=== PATIENT | female | born 1940 | race Caucasian/White ===

== ENCOUNTER 2018-06-29 11:34 | Outpatient (CLI) | payer MEDICARE, OTHER ==
--- NOTE | 2018-06-29 13:41 | Ultrasound Report ---
Reason: RIGHT BREAST PAIN Procedure Date: 06/29/2018 Accession Number: [id number] / [id number] Procedure: US - Breast Unilateral Limited CPT Code: FULL RESULT: EXAM: Diagnostic Dig Bilat, Breast Unilateral Limited DATE: 06/29/2018 12:23 PM CLINICAL HISTORY: Right breast pain COMPARISON: 04/15/2017, 02/11/2016, 01/29/2016, 11/24/2014, 11/23/2012 and 07/09/2012 BILATERAL MAMMOGRAPHY TECHNIQUE: Bilateral digital CC, MLO, right true lateral and right spot compression views. FINDINGS: There are scattered fibroglandular densities. There has been no significant interval change. No dominant mass, architectural distortion, skin thickening, clustered suspicious microcalcifications or other finding. RIGHT BREAST ULTRASOUND TECHNIQUE: Real-time scanning by the national account representative with saved static images reviewed. FINDINGS: In the area of pain 10:00 position right breast 5 cm from the nipple there is a prominent dilated duct measuring 6 x 2 x 7 mm. No solid mass is identified. IMPRESSION: Benign findings RECOMMENDATION: Follow-up bilateral mammography in 12 months. Clinical follow-up of breast pain. BIRADS CATEGORY 2: Benign findings STANDARD QUALIFYING STATEMENTS: 1. This examination was reviewed with the aid of Computer-Aided Detection (CAD). 2. A negative or benign imaging report should not delay biopsy if clinically suspicious findings are present. Consider surgical consultation if warrented. More than 5% of cancers are not identified by imaging. 3. Dense breasts may obscure an underlying neoplasm.
== END 2018-06-29 11:35 | disposition home or self-care (01) ==
LOC: DI 11:34
PROVIDERS: ATTEND Internal Medicine
DX: N64.4 Mastodynia (principal); N60.41 Mammary duct ectasia of right breast
CPT/HCPCS: 76642; 77066

== ENCOUNTER 2019-01-24 11:24 | Outpatient (CLI) | payer MEDICARE, MEDICAID ==
--- NOTE | 2019-01-24 14:53 | XRAY Report ---
Reason: DYSPNEA Procedure Date: 01/24/2019 Accession Number: [id number] / [id number] Procedure: XR - Chest 2 View X-Ray CPT Code: 26453 FULL RESULT: EXAM: CHEST RADIOGRAPHY EXAM DATE: 01/24/2019 12:07 PM. CLINICAL HISTORY: Dyspnea. COMPARISON: None. TECHNIQUE: 2 views. FINDINGS: Lungs/Pleura: No focal opacities evident. No pleural effusion. No pneumothorax. Normal volumes. Mediastinum: Heart and mediastinal contours are unremarkable. Other: Lower thoracic levoscoliosis with associated mild kyphosis and multilevel degenerative disk changes. Left glenohumeral joint arthritis. IMPRESSION: No infiltrates or edema. RADIA
== END 2019-01-24 11:25 | disposition home or self-care (01) ==
LOC: LAB 11:24 → DI 11:25
PROVIDERS: ATTEND Internal Medicine
DX: R06.00 Dyspnea, unspecified (principal)
CPT/HCPCS: 36415; 71046; 83880

== ENCOUNTER 2019-02-08 10:57 | Outpatient (CLI) | payer MEDICARE, MEDICAID | END 2019-02-08 10:58 | disposition EMS.NT | LOC: EMS 10:57 | PROVIDERS: ATTEND Surgery | DX: R10.84 Generalized abdominal pain (principal) ==

== ENCOUNTER 2019-02-08 11:57 | Emergency (ER) | payer MEDICARE, MEDICAID ==
[2019-02-08 12:46] LABS: BASOPHILS # (AUTO) 0.1 10^3/uL (0.0-0.1); BASOPHILS % (AUTO) 0.7 %; EOSINOPHILS # (AUTO) 0.1 10^3/uL (0.0-0.7); EOSINOPHILS % (AUTO) 0.9 %; HGB - HEMOGLOBIN 12.7 g/dL (12.0-16.0); LYMPHOCYTES # (AUTO) 1.2 10^3/uL (1.5-3.5); LYMPHOCYTES % (AUTO) 15.7 %; MEAN CORPUSCULAR HEMOGLOBIN 28.4 pg (27.0-31.0); MEAN CORPUSCULAR HGB CONC 33.1 g/dL (32.0-36.0); MEAN CORPUSCULAR VOLUME 85.8 fL (81.0-99.0); MONOCYTES # (AUTO) 0.4 10^3/uL (0.0-1.0); MONOCYTES % (AUTO) 5.8 %; NEUTROPHILS # (AUTO) 5.9 10^3/uL (1.5-6.6); NEUTROPHILS % (AUTO) 76.9 %; PLT - PLATELET COUNT 242 10^3/uL (130-450); RED BLOOD COUNT 4.49 10^6/uL (4.20-5.40); RED CELL DISTRIBUTION WIDTH 14.6 % (12.0-15.0); WHITE BLOOD COUNT 7.7 x10^3/uL (4.8-10.8)
[2019-02-08 12:58] LABS: ALBUMIN/GLOBULIN RATIO 1.4 (1.0-2.2); BILIRUBIN,TOTAL 0.8 mg/dL (0.2-1.0); CALCIUM 9.6 mg/dL (8.5-10.3); CREATININE 0.7 mg/dL (0.4-1.0); TOTAL PROTEIN 6.9 g/dL (6.7-8.2)
--- NOTE | 2019-02-08 13:05 | ED Physician Documentation ---
PD HPI ABD PAIN - Stated complaint Stated Complaint: WEAKNESS - Chief complaint Chief Complaint: Abd Pain - History obtained from History obtained from: Patient - History of Present Illness Timing - onset: How many hours ago (3) Timing - duration: Minutes (5-10) Timing - details: Abrupt onset Pain level max: 10 Pain level now: 0 Quality: Cramping, Pain Location: Other (lower abdominal) Radiation: Other (non-radiating) Improved by: Other (nothing) Worsened by: Other (nothing) Associated symptoms: Nausea, Constipation (has a problem with constipation normally), Near syncope / syncope (felt dizzy with the pain was severe). No: Fever, Vomiting, Hematemesis, Diarrhea Recently seen: Not recently seen - Additional information Additional information: 79-year-old female presents to the emergency department with with lower abdominal cramping today. She states that she went to the bathroom and felt like she needed to have a bowel movement but not much came out. There was no blood. She states she had severe lower abdominal cramping that caused her to feel lightheaded and dizzy. This lasted approximately 5-10 minutes and then resolved. She states that she feels better now. Does have a history of constipation. No vomiting. No recent surgery. No recent antibiotics. No fev ers. No recent travel Review of Systems Constitutional: denies: Fever, Chills Cardiac: denies: Chest pain / pressure Respiratory: denies: Cough GI: denies: Vomiting, Hematemesis, Bloody / black stool Skin: denies: Rash Musculoskeletal: denies: Neck pain, Back pain Neurologic: denies: Headache PD PAST MEDICAL HISTORY - Past Medical History Past Medical History: No - Present Medications Home Medications: Ambulatory Orders Medication Instructions Recorded Confirmed Levothyroxine [Synthroid] 112 mcg PO QDAC 02/08/19 02/08/19 Sertraline [Zoloft] 50 mg PO DAILY 02/08/19 02/08/19 - Allergies Allergies/Adverse Reactions: Allergies Allergy/AdvReac Type Severity Reaction Status Date / Time procaine [From Novocain] Allergy Unknown Verified 02/08/19 13:18 - Social History Does the pt smoke?: No Smoking Status: Never smoker PD ED PE NORMAL - Vitals Vital signs reviewed: Yes - General General: Alert and oriented X 3, No acute distress, Well developed/nourished - HEENT HEENT: Moist mucous membranes, Pharynx benign - Neck Neck: Supple, no meningeal sign - Cardiac Cardiac: RRR, Strong equal pulses - Respiratory Respiratory: No respiratory distress, Clear bilaterally - Abdomen Abdomen: Normal bowel sounds, Soft, Non tender, Non distended - Back Back: No CVA TTP, No spinal TTP - Derm Derm: Warm and dry - Extremities Extremities: No edema - Neuro Neuro: Alert and oriented X 3 - Psych Psych: Normal mood, Normal affect Results - Vitals Vitals: Vital Signs - 24 hr 02/08/19 02/08/19 02/08/19 12:05 14:35 14:37 Temperature 36.2 C L Heart Rate 52 L 63 86 Respiratory 16 18 16 Rate Blood Pressure 165/87 H 124/84 H 124/86 H O2 Saturation 99 98 100 Oxygen O2 Source Room air - EKG (time done) 1218 Rate: Rate (enter#) (52) Rhythm: NSR [place]: Normal Intervals: Normal MA QRS: Normal Ischemia: Normal ST segments - Labs Labs: Laboratory Tests 02/08/19 02/08/19 02/08/19 12:29 12:29 13:04 WBC 7.7 RBC 4.49 Hgb 12.7 Hct 38.5 MCV 85.8 MCH 28.4 MCHC 33.1 RDW 14.6 Plt Count 242 MPV 9.0 Neut # (Auto) 5.9 Lymph # (Auto) 1.2 L [place] # (Auto) 0.4 Eos # (Auto) 0.1 Baso # (Auto) 0.1 Absolute Nucleated RBC 0.00 Nucleated RBC % 0.0 Sodium 138 Potassium 3.8 Chloride 102 Carbon Dioxide 25 Anion Gap 11.0 BUN 19 Creatinine 0.7 Estimated GFR (MDRD) 81 L Glucose 132 H Calcium 9.6 Total Bilirubin 0.8 AST 23 ALT 15 Alkaline Phosphatase 58 Total Protein 6.9 Albumin 4.0 Globulin 2.9 Albumin/Globulin Ratio 1.4 Lipase 34 Urine Color YELLOW Urine Clarity HAZY Urine pH 8.5 H Ur Specific [place] 1.010 Urine Protein NEGATIVE Urine Glucose (UA) NEGATIVE Urine Ketones NEGATIVE Urine Occult Blood NEGATIVE Urine Nitrite NEGATIVE Urine Bilirubin NEGATIVE Urine Urobilinogen 0.2 (NORMAL) Ur Leukocyte Esterase NEGATIVE Urine RBC None Seen Urine WBC 0-3 Ur Squamous Epith Cells NONE SEEN Amorphous Sediment Few Urine Bacteria Rare Urine Casts 0-2 Hyaline Casts Ur Microscopic Review INDICATED Urine Culture Comments NOT INDICATED - Rads (name of study) CT abdomen pelvis Radiology: Prelim report reviewed, EMP read contemporaneously, See rad report ( There is distal colon diverticulosis without CT evidence of diverticulitis. 2. No evidence of bowel obstruction. No significant mesenteric inflammation. 3. There are punctate hyperdensities, architectural distortion, and some soft tissue density at the gastroesophageal junction. This could be secondary to prior fundoplication. Clinical correlation recommended. Differential consideration would be a mass. 4. There is a 2.8 x 1.9 cm hypodensity within segment 7 of the liver. It demonstrates peripheral nodular hyperdensity. There is an adjacent 1.1 cm enhancing mass within the liver. These probably represent hemangiomas. This could be confirmed with nonemergent dedicated hepatic MRI or CT as indicated. ) PD MEDICAL DECISION MAKING - ED course Complexity details: reviewed results, re-evaluated patient, considered different ial, d/w patient, d/w family ED course: Patient had a hiatal hernia repair with reconstruction of her gastroesophageal junction 2 years ago. Symptoms resolved in the emergency department. Tolerating p.o. without difficulty. Eating lunch. No acute findings on laboratory studies. The abnormality at the gastroesophageal junction is likely the findings of her surgery. Abdomen remains soft, nontender nondistended on serial exam. Sounds as if she had bowel cramping. No evidence of aortic dissection or aneurysm. No evidence of mesenteric ischemia. Patient counseled regarding signs and symptoms for which I believe and urgent re-evaluation would be necessary. Patient with good understanding of and agreement to plan and is comfortable going home at this time This document was made in part using voice recognition software. While efforts are made to proofread this document, sound alike and grammatical errors may occur. Departure - Departure Disposition: 01 Home, Self Care Clinical Impression: Abdominal pain Qualifiers: Abdominal location: lower abdomen, unspecified Qualified Code(s): R10.30 - Lower abdominal pain, unspecified Condition: Good Instructions: ED Abdominal Pain Unkn Cause Follow-Up: Angie Mathew MD [Primary Care Provider] - Within 3 Days Comments: The cause of your symptoms is unclear today. Follow-up with your doctor for further care. Return if you worsen. Discharge Date/Time: 02/08/19 14:54
[2019-02-08 13:15] LABS: BILIRUBIN,URINE NEGATIVE (NEGATIVE); GLUCOSE, URINE (UA) NEGATIVE (NEGATIVE); KETONES,URINE (UA) NEGATIVE (NEGATIVE); LEUKOCYTE ESTERASE, URINE NEGATIVE (NEGATIVE); NITRITE,URINE NEGATIVE (NEGATIVE); OCCULT BLOOD,URINE NEGATIVE (NEGATIVE); PH,URINE 8.5 PH (5.0-7.5); PROTEIN,URINE NEGATIVE (NEGATIVE); UROBILINOGEN,URINE 0.2 (NORMAL) E.U./dL (NORMAL)
[2019-02-08 13:18] LABS: CLARITY,URINE HAZY (CLEAR)
[2019-02-08] MEDS ORDERED: IOVERSOL 320 100 ML VIAL IVP ONE ×2 (13:29→14:29)
[2019-02-08 13:33] LABS: AMORPHOUS SEDIMENT,UR Few /LPF; BACTERIA,URINE Rare /HPF (None Seen); RBC,URINE None Seen /HPF (0-5); SQUAMOUS EPITHELIAL CELL,UR NONE SEEN (<= Few)
[2019-02-08 13:34] LABS: CASTS, URINE 0-2 Hyaline Casts /LPF
--- NOTE | 2019-02-08 14:26 | CT Report ---
Reason: Lower abd pain, severe this am Procedure Date: 02/08/2019 Accession Number: [id number] / [id number] Procedure: CT - Abdomen/Pelvis W CPT Code: FULL RESULT: EXAM: CT ABDOMEN AND PELVIS EXAM DATE: 02/08/2019 01:57 PM. CLINICAL HISTORY: Abdominal pain COMPARISONS: CHEST 2 VIEW 01/24/2019 12:04 PM. TECHNIQUE: Routine helical CT imaging was performed through the abdomen and pelvis. IV contrast: CE. Enteric contrast: No. Reconstructions: Coronal and sagittal. In accordance with CT protocol optimization, one or more of the following dose reduction techniques were utilized for this exam: automated exposure control, adjustment of mA and/or KV based on patient size, or use of iterative reconstructive technique. FINDINGS: Lung Bases: No acute abnormalities are seen. Liver: There is a 2.8 x 1.9 cm hypodensity within segment 7 of the liver. There is an adjacent 1.1 cm enhancing focus. There is some punctate calcification at the posterior margin of the liver. Gallbladder/Bile Ducts: The gallbladder is surgically absent. There is no significant bile duct dilatation. Spleen: No significant abnormalities are seen. Pancreas: There is fatty replacement of the pancreas. No acute pancreatic abnormalities. Adrenal Glands: Normal. Kidneys: Normal. No masses or hydronephrosis. Peritoneal Cavity/Bowel: There are punctate densities with some associated hypodensity at the gastroesophageal junction (for example image 16 series 3). No acute small bowel abnormalities are seen. There is distal colon diverticulosis without CT evidence of diverticulitis. There is no intraperitoneal free air or free fluid. There are no enlarged mesenteric or retroperitoneal lymph nodes. No evidence of appendicitis. Pelvic Organs: Calcification at the anterior margin of the uterus may represent a fibroid. The urinary bladder is unremarkable. Vasculature: No acute vascular abnormalities are seen. Bones: No significant abnormality. Other: None. IMPRESSION: 1. There is distal colon diverticulosis without CT evidence of diverticulitis. 2. No evidence of bowel obstruction. No significant mesenteric inflammation. 3. There are punctate hyperdensities, architectural distortion, and some soft tissue density at the gastroesophageal junction. This could be secondary to prior fundoplication. Clinical correlation recommended. Differential consideration would be a mass. 4. There is a 2.8 x 1.9 cm hypodensity within segment 7 of the liver. It demonstrates peripheral nodular hyperdensity. There is an adjacent 1.1 cm enhancing mass within the liver. These probably represent hemangiomas. This could be confirmed with nonemergent dedicated hepatic MRI or CT as indicated. RADIA
[2019-02-08 14:38] VITALS: BP 124/86
== END 2019-02-08 14:54 | disposition home or self-care (01) ==
LOC: ED 11:57
DX: R10.30 Lower abdominal pain, unspecified (principal); R42 Dizziness and giddiness; K57.30 Diverticulosis of large intestine without perforation or abscess without bleeding; R16.0 Hepatomegaly, not elsewhere classified; Z98.890 Other specified postprocedural states
CPT/HCPCS: 36415; 74177; 80053; 81001; 83690; 85025; 93005; 99283; Q9967; 81003; 87086

== ENCOUNTER 2020-04-10 12:54 | Outpatient (CLI) | payer MEDICARE, MEDICAID ==
--- NOTE | 2020-04-10 14:01 | XRAY Report ---
PROCEDURE: Knee 3 View RT INDICATIONS: RT KNEE PAIN TECHNIQUE: 3 views of the right knee(s) were acquired. COMPARISON: None. FINDINGS: Bones: Lucency noted in the medial tibial plateau concerning for nondisplaced/depressed fracture. Sev ere osteoarthritic degenerative changes noted in the patellofemoral compartment. Mild to moderate lat eral and medial compartment osteoarthritis. Soft tissues: No joint effusion. No suspicious soft tissue calcifications. IMPRESSION: Possible nondisplaced, nondepressed medial tibial plateau fracture. Recommend CT scan of the knee for definitive characterization. Findings and recommendations telephoned Angie Mathew on 04/10/2020 at 1359 hours. Reviewed by: Brittney Mendez MD, PhD on 04/10/2020 1:59 PM PDT Approved by: Brittney Mendez MD, PhD on 04/10/2020 1:59 PM PDT Station ID: [id number]
--- NOTE | 2020-04-10 17:26 | CT Report ---
PROCEDURE: LOWER EXTREMITY WO - RT INDICATIONS: R KNEE PAIN TECHNIQUE: Noncontrast 3 mm axial sections acquired of the right knee, with coronal and sagittal reformats. COMPARISON: Correlation is made with right knee plain films 04/10/2020. FINDINGS: Image quality: Excellent. Bones: There is a mildly displaced, comminuted fracture seen involving the medial tibial plateau, wh ich is best seen on coronal images, as on series 6 image 61. There is intra-articular involvement see n. No additional fractures are seen. No dislocations are seen. Age-appropriate osteopenia and degenerati ve changes are seen. Soft tissues: There is a mild associated joint effusion seen. IMPRESSION: Mildly displaced, comminuted, intra-articular medial tibial plateau fracture. An orthopedic surgery consultation is recommended. Reviewed by: Steven Moreira MD on 04/10/2020 4:25 PM JUNE Approved by: Steven Moreira MD on 04/10/2020 4:25 PM JUNE Station ID: [id number]
== END 2020-04-10 12:55 | disposition home or self-care (01) ==
LOC: DI 12:54
PROVIDERS: ATTEND Internal Medicine
DX: S82.141A Displaced bicondylar fracture of right tibia, initial encounter for closed fracture (principal)

== ENCOUNTER 2021-02-18 13:12 | Outpatient (CLI) | payer MEDICARE, MEDICAID ==
[2021-02-18 20:00] LABS: BASOPHILS % (AUTO) 0.6 %; EOSINOPHILS # (AUTO) 0.1 10^3/uL (0.0-0.7); EOSINOPHILS % (AUTO) 1.5 %; HCT - HEMATOCRIT 36.7 % (37.0-47.0); HGB - HEMOGLOBIN 11.6 g/dL (12.0-16.0); LYMPHOCYTES # (AUTO) 2.4 10^3/uL (1.5-3.5); LYMPHOCYTES % (AUTO) 36.4 %; MEAN CORPUSCULAR HEMOGLOBIN 28.2 pg (27.0-31.0); MEAN CORPUSCULAR HGB CONC 31.6 g/dL (32.0-36.0); MEAN CORPUSCULAR VOLUME 89.1 fL (81.0-99.0); MEAN PLATELET VOLUME 11.6 fL (7.9-10.8); MONOCYTES # (AUTO) 0.4 10^3/uL (0.0-1.0); MONOCYTES % (AUTO) 6.6 %; NEUTROPHILS # (AUTO) 3.6 10^3/uL (1.5-6.6); NEUTROPHILS % (AUTO) 54.6 %; PLT - PLATELET COUNT 297 10^3/uL (130-450); RED BLOOD COUNT 4.12 10^6/uL (4.20-5.40); RED CELL DISTRIBUTION WIDTH 14.4 % (12.0-15.0); WHITE BLOOD COUNT 6.6 x10^3/uL (4.8-10.8)
[2021-02-18 20:16] LABS: ALBUMIN 4.2 g/dL (3.2-5.5); ALBUMIN/GLOBULIN RATIO 1.4 (1.0-2.2); ALKALINE PHOSPHATASE 52 IU/L (42-121); ALT ALANINE AMINOTRANSFERASE 13 IU/L (10-60); AST ASPARTATE AMINOTRANSFERASE 19 IU/L (10-42); BILIRUBIN,TOTAL 0.7 mg/dL (0.2-1.0); BUN - BLOOD UREA NITROGEN 18 mg/dL (6-20); CALCIUM 9.3 mg/dL (8.5-10.3); CARBON DIOXIDE - CO2 26 mmol/L (21-32); CHLORIDE 106 mmol/L (101-111); CHOL/HDL RATIO 3.5 (<4.4); CHOLESTEROL 287 mg/dL; CREATININE 0.6 mg/dL (0.4-1.0); GFR - MDRD 96 (>89); GLUCOSE 84 mg/dL (70-100); HDL CHOLESTEROL 83 mg/dL; LDL CHOLESTEROL,CALCULATED 189 mg/dL; LDL/HDL RATIO 2.3 (<4.4); POTASSIUM 4.2 mmol/L (3.5-5.0); SODIUM 140 mmol/L (135-145); TOTAL PROTEIN 7.1 g/dL (6.7-8.2); TRIGLYCERIDES 75 mg/dL; VLDL CHOLESTEROL 15 mg/dL
== END 2021-02-18 13:13 | disposition home or self-care (01) ==
LOC: LAB.S 13:12
PROVIDERS: ATTEND Internal Medicine
DX: M25.50 Pain in unspecified joint (principal); Z13.6 Encounter for screening for cardiovascular disorders; M19.90 Unspecified osteoarthritis, unspecified site; R25.2 Cramp and spasm; E78.5 Hyperlipidemia, unspecified; F41.9 Anxiety disorder, unspecified; E03.9 Hypothyroidism, unspecified
CPT/HCPCS: 36415; 80053; 80061; 83721; 84443; 85025

== ENCOUNTER 2021-03-11 07:15 | Outpatient (CLI) | payer MEDICARE, MEDICAID ==
--- NOTE | 2021-03-11 16:02 | XRAY Report ---
PROCEDURE: Shoulder 3 View LT INDICATIONS: LEFT SHOULDER PAIN TECHNIQUE: 3 views of the shoulder were acquired. COMPARISON: None. FINDINGS: Bones: No fractures or dislocations. No suspicious bony lesions. Visualized ribs appear intact. M oderate to severe acromioclavicular and glenohumeral degenerative narrowing. Subchondral sclerosis is present with periarticular osteophytes. Soft tissues: No suspicious soft tissue calcifications. IMPRESSION: Prominent degenerative changes at the glenohumeral and acromioclavicular joint spaces. Reviewed by: Rekha Doran MD on 03/11/2021 4:01 PM PDT Approved by: Rekha Doran MD on 03/11/2021 4:01 PM PDT Station ID: [id number]
== END 2021-03-11 23:59 | disposition home or self-care (01) ==
LOC: DI.N 07:15
PROVIDERS: ATTEND Physician Assistant
DX: M19.012 Primary osteoarthritis, left shoulder (principal)

== ENCOUNTER 2021-12-21 08:00 | Outpatient (CLI) | payer MEDICARE, MEDICAID | END 2021-12-21 23:59 | disposition home or self-care (01) | LOC: LAB.R 08:00 | PROVIDERS: ATTEND Internal Medicine | DX: E03.9 Hypothyroidism, unspecified (principal) | CPT/HCPCS: 84443 ==

== ENCOUNTER 2022-03-22 13:06 | Outpatient (CLI) | payer MEDICARE, MEDICAID | END 2022-03-22 13:07 | disposition home or self-care (01) | LOC: LAB.S 13:06 | PROVIDERS: ATTEND Internal Medicine | DX: E03.9 Hypothyroidism, unspecified (principal) | CPT/HCPCS: 36415; 84443 ==

== ENCOUNTER 2022-05-01 14:45 | Emergency (ER) | payer MEDICARE, MEDICAID ==
--- NOTE | 2022-05-01 15:17 | ED Physician Documentation ---
PD HPI FOCAL NEURO - Stated complaint Stated Complaint: CONFUSSED,LT HAND NUMBNESS - Chief complaint Chief Complaint: Neuro - History obtained from History obtained from: Patient, Family - History of Present Illness Timing - onset: Today - Additional information Additional information: 82-year-old woman with history of hypertension, hypothyroidism. She is brought in by her son for an episode. They states she has episodes like this once a month although this 1 is worse than usual. She got dizzy and weak and complained of left arm tingling and then had difficulty identifying objects such as a cell phone. It was followed by headache and preceded by spots in her vision, both eyes. She also has other complaints including chronic shortness of breath. Her symptoms are gone now but consent continues to have a headache. Her son checked her blood pressure and blood sugar. Her blood pressure was high so he gave her divided doses of captopril, and her blood sugar was in the 120s. Patient feels again back to normal now with the exception of a moderate headache. She does not have a history of migraines. Symptoms started a bit after noon and lasted 30-45 minutes. Review of Systems Ten Systems: 10 systems reviewed and negative Constitutional: denies: Fever, Chills Cardiac: denies: Chest pain / pressure, Palpitations Respiratory: reports: Dyspnea (chronic). denies: Cough Musculoskeletal: reports: Extremity pain (Leg cramps have been going on for years) PD PAST MEDICAL HISTORY - Present Medications Home Medications: Ambulatory Orders Medication Instructions Recorded Confirmed Levothyroxine [Synthroid] 112 mcg PO QDAC 02/08/19 02/08/19 Sertraline [Zoloft] 50 mg PO DAILY 02/08/19 02/08/19 - Allergies Allergies/Adverse Reactions: Allergies Allergy/AdvReac Type Severity Reaction Status Date / Time procaine [From Novocain] Allergy Unknown Verified 05/01/22 15:06 - Social History Does the pt smoke?: No Smoking Status: Never smoker PD ED PE NORMAL - Vitals Vital signs reviewed: Yes - General General: Alert and oriented X 3, No acute distress - HEENT HEENT: PERRL, EOMI - Neck Neck: Supple, no meningeal sign, No bony TTP - Cardiac Cardiac: RRR, No murmur - Respiratory Respiratory: No respiratory distress, Clear bilaterally - Abdomen Abdomen: Normal bowel sounds, Soft, Non tender - Back Back: No CVA TTP, No spinal TTP - Derm Derm: Normal color, Warm and dry - Extremities Extremities: Other (Trigger finger of the right fourth finger and changes in the hands consistent with rheumatism) - Neuro Neuro: Alert and oriented X 3, No motor deficit, No sensory deficit NIHSS - Time Time: 15:10 - Level of Consciousness Level of consciousness: (0) Alert, Keenly responsive LOC Questions: (0) Answers both Q's correct LOC Commands: (0) Performs both correctly - Gaze Best Gaze: (0) Normal - Visual Visual: (0) No loss - Facial Palsy Facial Palsy: (0) Normal, symmetrical movement - Motor Arms (both separate) Motor Arm (right): (0) No drift Motor Arm (left): (0) No drift - Motor Legs (both separate) Motor Leg (right): (0) No drift Motor Leg (left): (0) No drift - Limb Ataxia Limb Ataxia: (0) Absent - Sensory Sensory: (0) Normal - Best Language Best Language: (0) No aphasia - Dysarthria Dysarthria: (0) Normal - Extinction and Inattention (formally neg Extinction and inattention: (0) No abnormality - Total Score/Results Total Score/Result: 0 Results - Vitals Vitals: Vital Signs - 24 hr 05/01/22 15:01 Temperature 36.3 C L Heart Rate 50 L Respiratory 16 Rate Blood Pressure 179/75 H O2 Saturation 100 Oxygen O2 Source Room air - EKG (time done) 1512 Rate: Rate (enter#) (56) Rhythm: NSR [place]: Normal Intervals: Normal [place] QRS: Normal Ischemia: Normal ST segments - Labs Labs: Laboratory Tests 05/01/22 05/01/22 15:20 15:20 WBC 7.6 RBC 4.29 Hgb 12.3 Hct 37.1 MCV 86.5 MCH 28.7 MCHC 33.2 RDW 14.3 Plt Count 284 MPV 10.8 Neut # (Auto) 4.7 Lymph # (Auto) 2.2 [place] # (Auto) 0.6 Eos # (Auto) 0.1 Baso # (Auto) 0.0 Absolute Nucleated RBC 0.00 Nucleated RBC % 0.0 Sodium 136 Potassium 3.9 Chloride 102 Carbon Dioxide 26 Anion Gap 8.0 BUN 20 Creatinine 0.8 Estimated GFR (MDRD) 69 L Glucose 137 H Calcium 10.0 Magnesium 2.0 Total Bilirubin 0.6 AST 22 ALT 12 Alkaline Phosphatase 62 Total Protein 7.0 Albumin 4.0 Globulin 3.0 Albumin/Globulin Ratio 1.3 PD MEDICAL DECISION MAKING - ED course ED course: 82-year-old woman who has had 2 TIAs in the past but is currently noncompliant with recommended aspirin therapy had another TIA today. She has clean carotids and only age-related changes on head CT. Her symptoms are completely gone here with an NIH stroke scale of 0. She also has chronic dyspnea and a chest x-ray was done and negative. Labs are unremarkable. Recommended she restart aspirin therapy and follow-up with her primary care physician. ABCD 2 score is 3 suggestive that she is safe for discharge. Departure - Departure Disposition: 01 Home, Self Care Clinical Impression: TIA (transient ischemic attack) Condition: Good Record reviewed to determine appropriate education?: Yes Instructions: ED Transient Ischemic Attack Comments: You were seen today for symptoms most consistent with a TIA. Thankfully her symptoms have all resolved. There is no evidence of a blockage in her carotid arteries, and your EKG and chest x-ray are unremarkable. Return for new or worsening symptoms. Follow-up with Dr. Mathew, next available appointment calling tomorrow for an appointment. As discussed, given your history you do need to take a baby aspirin a day, we gave you a first dose here. This should continue unless there is some reason to stop.
[2022-05-01 15:25] LABS: BASOPHILS % (AUTO) 0.5 %; EOSINOPHILS # (AUTO) 0.1 10^3/uL (0.0-0.7); EOSINOPHILS % (AUTO) 1.1 %; HCT - HEMATOCRIT 37.1 % (37.0-47.0); HGB - HEMOGLOBIN 12.3 g/dL (12.0-16.0); LYMPHOCYTES # (AUTO) 2.2 10^3/uL (1.5-3.5); LYMPHOCYTES % (AUTO) 29.1 %; MEAN CORPUSCULAR HEMOGLOBIN 28.7 pg (27.0-31.0); MEAN CORPUSCULAR HGB CONC 33.2 g/dL (32.0-36.0); MEAN CORPUSCULAR VOLUME 86.5 fL (81.0-99.0); MEAN PLATELET VOLUME 10.8 fL (7.9-10.8); MONOCYTES # (AUTO) 0.6 10^3/uL (0.0-1.0); MONOCYTES % (AUTO) 7.3 %; NEUTROPHILS # (AUTO) 4.7 10^3/uL (1.5-6.6); NEUTROPHILS % (AUTO) 61.9 %; PLT - PLATELET COUNT 284 10^3/uL (130-450); RED BLOOD COUNT 4.29 10^6/uL (4.20-5.40); RED CELL DISTRIBUTION WIDTH 14.3 % (12.0-15.0); WHITE BLOOD COUNT 7.6 x10^3/uL (4.8-10.8)
[2022-05-01 15:38] LABS: ALBUMIN/GLOBULIN RATIO 1.3 (1.0-2.2); BILIRUBIN,TOTAL 0.6 mg/dL (0.2-1.0); CREATININE 0.8 mg/dL (0.4-1.0); POTASSIUM 3.9 mmol/L (3.5-5.0)
--- NOTE | 2022-05-01 16:09 | CT Report ---
PROCEDURE: HEAD WO INDICATIONS: tia sx TECHNIQUE: Noncontrast 4.5 mm thick angled axial sections acquired from the foramen magnum to the vertex. For r adiation dose reduction, the following was used: automated exposure control, adjustment of mA and/or kV according to patient size. COMPARISON: None. FINDINGS: Image quality: Excellent. CSF spaces: Basal cisterns are patent. No extra-axial fluid collections. Ventricles are normal in size and shape. Brain: No midline shift. No intracranial masses or hemorrhage. Matos-white matter interface is norm al. Subcortical and periventricular hypodensities are consistent with microvascular ischemic disease and age-related cerebral volume loss. Skull and face: Calvarium and visualized facial bones are intact, without suspicious lesions. Sinuses: Visualized sinuses and mastoids are clear. IMPRESSION: 1. No acute intracranial abnormality. 2. Microvascular ischemic disease and age-related cerebral volume loss. Reviewed by: Austen العراقي on 05/01/2022 3:08 PM JUNE Approved by: Austen العراقي on 05/01/2022 3:08 PM JUNE Station ID: [id number]
--- NOTE | 2022-05-01 16:10 | XRAY Report ---
PROCEDURE: Chest 1 View X-Ray INDICATIONS: dyspnea COMMENTS: c/o headache, neck and left shoulder pain; poss TIA. PRIORS: 2V C XR 01/24/19 TECHNIQUE: One view of the chest was acquired. COMPARISON: None FINDINGS: Surgical changes and devices: None. Lungs and pleura: No pleural effusions or pneumothorax. Lungs are clear. Mediastinum: Mediastinal contours appear normal. Heart size is normal. The aorta is tortuous. Bones and chest wall: No suspicious bony lesions. Overlying soft tissues appear unremarkable. Both shoulders have degenerative changes. IMPRESSION: No acute cardiopulmonary abnormality Reviewed by: Austen العراقي on 05/01/2022 3:09 PM JUNE Approved by: Austen العراقي on 05/01/2022 3:09 PM JUNE Station ID: [id number]
[2022-05-01] MEDS ORDERED: ASPIRIN CHEW 81 MG TABLET PO STA (16:36)
[2022-05-01 16:51] VITALS: BP 161/78
--- NOTE | 2022-05-01 17:44 | Ultrasound Report ---
PROCEDURE: Carotid Doppler Complete INDICATIONS: tia sx TECHNIQUE: Color and pulse Doppler interrogation was performed of both carotid systems, with image documentation and velocity measurements. COMPARISON: None. FINDINGS: Right side: Brachial blood pressure: 141/125 mm Hg. Common carotid artery peak systolic velocity: 46.1 cm/sec. Internal carotid artery peak systolic velocity: 86.5 cm/sec. Internal carotid artery end diastolic velocity: 25.7 cm/sec. External carotid artery peak systolic velocity: 34.6 cm/sec. ICA/CCA peak systolic ratio: 1.9 . Matos scale imaging description: Diffuse minimal plaque in the bulb. Percent internal carotid artery stenosis: Less than 50% . Vertebral artery: Flow direction is antegrade. Left side: Brachial blood pressure: 163/85 mm Hg. Common carotid artery peak systolic velocity: 55.2 cm/sec. Internal carotid artery peak systolic velocity: 82.8 cm/sec. Internal carotid artery end diastolic velocity: 19.4 cm/sec. External carotid artery peak systolic velocity: 44.8 cm/sec. ICA/CCA peak systolic ratio: 1.5 . Matos scale imaging description: Diffuse minimal plaque in the bulb Percent internal carotid artery stenosis: Less than 50% . Vertebral artery: Flow direction is antegrade. IMPRESSION: Scattered minimal plaque in the bulbs bilaterally with no significant stenosis. The estimate of stenosis included in the report of the imaging study was calculated using the NASCET method Reviewed by: Austen العراقي on 05/01/2022 4:42 PM JUNE Approved by: Austen العراقي on 05/01/2022 4:42 PM JUNE Station ID: [id number]
== END 2022-05-01 16:51 | disposition home or self-care (01) ==
LOC: ED 14:45
DX: G45.9 Transient cerebral ischemic attack, unspecified (principal)
CPT/HCPCS: 36415; 70450; 71045; 80053; 83735; 85025; 93005; 93880; 99284; A9270

== ENCOUNTER 2022-05-19 10:50 | Outpatient (CLI) | payer MEDICARE, MEDICAID ==
[2022-05-19 15:10] LABS: BASOPHILS # (AUTO) 0.1 10^3/uL (0.0-0.1); BASOPHILS % (AUTO) 0.8 %; EOSINOPHILS # (AUTO) 0.1 10^3/uL (0.0-0.7); EOSINOPHILS % (AUTO) 1.8 %; HCT - HEMATOCRIT 36.3 % (37.0-47.0); HGB - HEMOGLOBIN 11.8 g/dL (12.0-16.0); LYMPHOCYTES % (AUTO) 33.4 %; MEAN CORPUSCULAR HEMOGLOBIN 28.4 pg (27.0-31.0); MEAN CORPUSCULAR HGB CONC 32.5 g/dL (32.0-36.0); MEAN CORPUSCULAR VOLUME 87.3 fL (81.0-99.0); MEAN PLATELET VOLUME 11.8 fL (7.9-10.8); MONOCYTES # (AUTO) 0.4 10^3/uL (0.0-1.0); MONOCYTES % (AUTO) 6.6 %; NEUTROPHILS # (AUTO) 3.5 10^3/uL (1.5-6.6); NEUTROPHILS % (AUTO) 57.1 %; PLT - PLATELET COUNT 277 10^3/uL (130-450); RED BLOOD COUNT 4.16 10^6/uL (4.20-5.40); RED CELL DISTRIBUTION WIDTH 14.5 % (12.0-15.0); WHITE BLOOD COUNT 6.1 x10^3/uL (4.8-10.8)
[2022-05-19 15:14] LABS: % IRON SATURATION 12 % (20-50); ALBUMIN/GLOBULIN RATIO 1.4 (1.0-2.2); ALKALINE PHOSPHATASE 54 IU/L (42-121); ALT ALANINE AMINOTRANSFERASE 11 IU/L (10-60); AST ASPARTATE AMINOTRANSFERASE 19 IU/L (10-42); BILIRUBIN,TOTAL 0.6 mg/dL (0.2-1.0); BUN - BLOOD UREA NITROGEN 18 mg/dL (6-20); CALCIUM 9.2 mg/dL (8.5-10.3); CARBON DIOXIDE - CO2 27 mmol/L (21-32); CHLORIDE 102 mmol/L (101-111); CHOL/HDL RATIO 3.5 (<4.4); CHOLESTEROL 302 mg/dL; CREATININE 0.8 mg/dL (0.4-1.0); GFR - MDRD 69 (>89); GLUCOSE 93 mg/dL (70-100); HDL CHOLESTEROL 86 mg/dL; IRON 45 ug/dL (28-170); LDL CHOLESTEROL,CALCULATED 201 mg/dL; LDL/HDL RATIO 2.3 (<4.4); POTASSIUM 4.4 mmol/L (3.5-5.0); SODIUM 134 mmol/L (135-145); TOTAL IRON BINDING CAPACITY 371 ug/dL (250-450); TOTAL PROTEIN 6.8 g/dL (6.7-8.2); TRANSFERRIN 265 mg/dL (192-382); TRIGLYCERIDES 74 mg/dL; VLDL CHOLESTEROL 15 mg/dL
[2022-05-19 15:32] LABS: THYROID STIMULATING HORMONE 3.18 uIU/mL (0.34-5.60)
[2022-05-19 15:39] LABS: FERRITIN 22.1 ng/mL (11.0-306.8)
[2022-05-19 15:43] LABS: FOLATE 9.59 ng/mL (5.90 - >24.8)
== END 2022-05-19 10:51 | disposition home or self-care (01) ==
LOC: LAB.S 10:50
PROVIDERS: ATTEND Internal Medicine
DX: Z00.00 Encounter for general adult medical examination without abnormal findings (principal); D64.9 Anemia, unspecified; F41.9 Anxiety disorder, unspecified; F32.A Depression, unspecified; H91.90 Unspecified hearing loss, unspecified ear; E78.5 Hyperlipidemia, unspecified; I10 Essential (primary) hypertension; E03.9 Hypothyroidism, unspecified; R41.3 Other amnesia; M19.90 Unspecified osteoarthritis, unspecified site; G45.9 Transient cerebral ischemic attack, unspecified
CPT/HCPCS: 36415; 80053; 80061; 82607; 82728; 82746; 83540; 83721; 84443; 84466; 85025

== ENCOUNTER 2024-06-10 22:06 | Outpatient (CLI) | payer MEDICARE, MEDICAID | END 2024-06-10 22:07 | disposition short-term general hospital (02) | LOC: EMS 22:06 | DX: M25.551 Pain in right hip (principal); W18.39XA Other fall on same level, initial encounter; Y92.009 Unspecified place in unspecified non-institutional (private) residence as the place of occurrence of the external cause; R42 Dizziness and giddiness | CPT/HCPCS: A0425; A0427 ==

== ENCOUNTER 2024-06-25 08:00 | Outpatient (CLI) | payer MEDICAID, MEDICARE ==
[2024-06-25 17:37] LABS: BASOPHILS # (AUTO) 0.1 10^3/uL (0.0-0.1); BASOPHILS % (AUTO) 0.5 %; EOSINOPHILS # (AUTO) 0.1 10^3/uL (0.0-0.7); EOSINOPHILS % (AUTO) 0.5 %; HCT - HEMATOCRIT 29.1 % (37.0-47.0); HGB - HEMOGLOBIN 9.3 g/dL (12.0-16.0); LYMPHOCYTES # (AUTO) 1.4 10^3/uL (1.5-3.5); MEAN CORPUSCULAR VOLUME 93.9 fL (81.0-99.0); MEAN PLATELET VOLUME 9.9 fL (7.9-10.8); MONOCYTES # (AUTO) 0.7 10^3/uL (0.0-1.0); MONOCYTES % (AUTO) 7.3 %; NEUTROPHILS # (AUTO) 7.8 10^3/uL (1.5-6.6); NEUTROPHILS % (AUTO) 77.1 %; PLT - PLATELET COUNT 699 10^3/uL (130-450); RED CELL DISTRIBUTION WIDTH 16.9 % (12.0-15.0); WHITE BLOOD COUNT 10.1 x10^3/uL (4.8-10.8)
[2024-06-25 17:48] LABS: CALCIUM 9.9 mg/dL (8.5-10.3); CREATININE 0.8 mg/dL (0.6-1.3); POTASSIUM 3.6 mmol/L (3.5-4.5)
== END 2024-06-25 23:59 | disposition home or self-care (01) ==
LOC: LAB.R 08:00
PROVIDERS: ATTEND Family Medicine
DX: E78.5 Hyperlipidemia, unspecified (principal); D62 Acute posthemorrhagic anemia
CPT/HCPCS: 80048; 84443; 85025

== ENCOUNTER 2025-09-02 12:24 | Observation (INO) ==
[2025-09-02 13:20] LABS: HCT - HEMATOCRIT 39.9 % (37.0-47.0); HGB - HEMOGLOBIN 13.3 g/dL (12.0-16.0); MEAN PLATELET VOLUME 9.8 fL (7.9-10.8); NRBC ABSOLUTE COUNT (AUTO) 0.00 x10^3/uL; NUCLEATED RED BLOOD CELLS AUTO 0.0 /100WBC; PLT - PLATELET COUNT 390 10^3/uL (130-450); RED CELL DISTRIBUTION WIDTH 14.2 % (12.0-15.0)
--- OUTSIDE RECORDS SUMMARY | 2025-09-02 13:24 | EXTERNAL MEDICAL SUMMARY RPT | Continuity of Care Document ---
Author Organization [facility] Address [address] [place] [id number] Phone Problems date description facility 2025-06-20 14:58 Pain in unspecified ankle and joints of unspecified foot [facility] 2025-06-20 15:51 Pain in unspecified ankle and joints of unspecified foot [facility] 2025-06-21 00:02 Pain in unspecified ankle and joints of unspecified foot [facility] 2025-06-24 13:29 Pain in left ankle and joints o f left foot [facility] 2025-08-22 00:01 Encounter for genera l adult medical examination without abnormal findings [facility] 2025-09-02 13:06 Encounter for genera l adult medical examination without abnormal findings [facility] Social History date description facility
[2025-09-02 13:37] LABS: ALT ALANINE AMINOTRANSFERASE 8.0 IU/L (10-60); AST ASPARTATE AMINOTRANSFERASE 15.0 IU/L (10-42); BUN - BLOOD UREA NITROGEN 14.0 mg/dL (6-20); CARBON DIOXIDE - CO2 25.0 mmol/L (21-32); CREATININE 0.7 mg/dL (0.6-1.3); GFR - MDRD 80.0 (>89)
--- NOTE | 2025-09-02 13:37 | XRAY Report ---
PROCEDURE: XR Chest 1V INDICATIONS: Chest pain TECHNIQUE: One view of the chest was acquired. COMPARISON: 08/01/2024 FINDINGS: Surgical changes and devices: None. Lungs and pleura: No pleural effusions or pneumothorax. No consolidation. Mediastinum: Torturous thoracic aorta. Heart size is enlarged. Bones and chest wall: No suspicious bony lesions. Overlying soft tissues appear unremarkable. IMPRESSION: No acute cardiopulmonary process. Reviewed by: Edward Decker MD on 09/02/2025 1:34 PM PST Approved by: Edward Decker MD on 09/02/2025 1:34 PM PST Station ID: [id number]
[2025-09-02 13:43] LABS: TROPONIN I HIGH SENSITIVITY 7.2 ng/L (2.3-14.8)
--- NOTE | 2025-09-02 16:36 | ED Physician Documentation ---
PD HPI ALTERED MENTAL STATUS Stated complaint Stated Complaint: LOW BP/WEAKNESS Chief complaint Chief Complaint: General Additional information Additional information: 85-year-old female with a history of GERD, depression, hypothyroidism, and hypercholesterolemia presents to the emergency department accompanied by her son, who is her caregiver. Her son reports that the patient was diagnosed with COVID-19 on August 26 and completed a five-day course of Paxlovid, with full resolution of her respiratory symptoms. Since recovery, she has experienced persistent weakness, fatigue, malaise, and intermittent headaches. Her son states that his father, who has dementia, mentioned that the patient may have fallen yesterday. The patient acknowledges a possible fall but is uncertain about the details. She is Afghan-speaking but also converses in Armenian. Her son notes that she alternates between periods of alertness and profound weakness. He has also observed episodes of low blood pressure at home. On evaluation, the patient is alert but confused. When asked the current year, she repeatedly responds 1945 despite being reoriented multiple times. She denies nausea, fever, chills, chest pain, or shortness of breath. [place]way Coma Scale Assess Eye opening: Spontaneous Verbal response: Confused Motor response: Obeys Commands Total score: 14 Meds/Allgy Home Medications Ambulatory Orders Medication Instructions Recorded Confirmed omeprazole 20 mg capsule,delayed 20 mg PO TID 09/18/24 06/20/25 release sertraline 50 mg tablet 50 mg PO QDAY #90 tabs 05/2806/20/25 benazepril 5 mg tablet See Rx Instructions .Route 0 07/15/25 .COMPLEX #90 tabs levothyroxine 88 mcg tablet 88 mcg PO QDAY #30 tabs atorvastatin 20 mg tablet (Lipitor) 20 mg PO QDAY #30 tabs 07/25/25 nirmatrelvir 300 mg (150 mg See Rx Instructions PO .CO MPLEX 08/22/25 x2)-ritonavir 100 mg tablet,dose #30 ea pack (Paxlovid) ondansetron HCl 8 mg tablet 8 mg PO Q12H 30 days #60 t abs 08/26/25 Allergies Allergies Allergy/AdvReac Type Severity Reaction Status Date / Time procaine (From Novocain) Allergy Unknown Verified 09/02/25 12:47 PFSH Active Problems All Active Problems (Updated 09/02/25 @ 21:48 by Abundio Brown DNP) Hyponatremia (Acute) Encephalopathy (Acute) Hyponatremia (Acute) Altered mental status (Acute) Nausea (Acute) CAD (coronary artery disease) (Acute) Arcus senilis of both corneas (Acute) Atrial fibrillation (Acute) Drusen (degenerative) of macula, bilateral (Acute) Vitreous degeneration, bilateral (Acute) Unspecified peripheral retinal degeneration (Acute) Osteoporosis (Acute) Combined hyperlipidemia (Acute) HTN (hypertension), benign (Acute) Arthritis (Acute) Hypothyroidism (Acute) Medical History Medical History (Updated 09/02/25 @ 21:48 by Abundio Brown DNP) Alteration in vision Abdominal pain Femur fracture Multiple medical problems Excessive ear wax TIA (transient ischemic attack) Chronic GERD Anxiety Hypertension Surgical History Surgical History Hx of hernia repair Family History Family History Mother Diabetes Maternal grandmother Diabetes Social History Social History (Updated 06/20/25 @ 15:51 by Ramesh Boyd MD) Smoking Status: Smoker with current status unk Do you feel safe in your home environment?: Yes History of physical, verbal, emotional, or financial abuse?: No Are you sexually active?: No Exam Exam Vital Signs: Vital Signs x48h Pulse Resp BP Pulse Ox 09/02/25 20:44 62 18 122/61 99 09/02/25 18:16 54 L 20 165/76 H 100 09/02/25 17:16 58 L 151/107 H 97 09/02/25 15:54 51 L 16 142/87 H 97 Constitutional abnormal general appearance (chronically ill) and (appears older than stated age), no apparent distress, abnormal body habitus (thin), no limitations and alert HENMT normocephalic and head/scalp atraumatic Eyes PERRL and EOMs intact bilaterally Neck/C-Spine visual inspection normal Lymph no lymphadenopathy noted Chest inspection of chest normal Respiratory breath sounds equal bilaterally, normal respiratory effort, clear to auscultation bilaterally, no wheezes and no retractions Cardiovascular normal heart rate noted and regular rhythm noted Gastrointestinal abdomen normal to inspection and abdomen soft to palpation Genitourinary no CVA tenderness Back/Pelvis spine normal to inspection Extremities normal to inspection 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 II-XII intact, no movement abnormality noted, gait normal, speech normal and coordination normal Psychiatry mental status grossly normal, orientation abnormal (disoriented to time) and cooperative Skin skin color normal Results Vitals Vitals: Vital Signs - 24 hr 09/02/25 12:38 09/02/25 15:54 09/02/25 17:16 Temperature 37 C Temperature Source Temporal Artery Scan Pulse Rate 50 L 51 L 58 L Respiratory Rate 15 16 Blood Pressure 124/67 142/87 H 151/107 H O2 Saturation 98 97 97 O2 Source Room air Room air Room air Pain Intensity 0 0 09/02/25 17:31 09/02/25 18:16 09/02/25 19:23 Temperature Temperature Source Pulse Rate 54 L Respiratory Rate 20 Blood Pressure 165/76 H O2 Saturation 100 O2 Source Room air Pain Intensity 3 0 0 09/02/25 20:44 Temperature Temperature Source Pulse Rate 62 Respiratory Rate 18 Blood Pressure 122/61 O2 Saturation 99 O2 Source Room air Pain Intensity 0 Oxygen O2 Source Room air Labs Labs: Laboratory Tests 09/02/25 09/02/25 09/02/25 13:13 17:58 20:44 WBC 8.3 RBC 4.70 Hgb 13.3 Hct 39.9 MCV 84.9 MCH 28.3 MCHC 33.3 RDW 14.2 Plt Count 390 MPV 9.8 Neut # (Auto) 4.7 Lymph # (Auto) 2.6 [place] # (Auto) 0.8 Eos # (Auto) 0.1 Baso # (Auto) 0.0 Absolute Nucleated RBC 0.00 Nucleated RBC % 0.0 Sodium 128 L 124 L Potassium 3.9 Chloride 95 L Carbon Dioxide 25 Anion Gap 8.0 BUN 14 Creatinine 0.7 Estimated GFR (MDRD) 80 L Glucose 99 Calcium 9.6 Total Bilirubin 0.7 AST 15 ALT 8 L Alkaline Phosphatase 52 Troponin I High Sens 7.2 Total Protein 7.1 Albumin 4.3 Globulin 2.8 Albumin/Globulin Ratio 1.5 Lipase 18 Urine Color YELLOW Urine Clarity CLEAR Urine pH 7.5 Ur Specific [place] 1.010 Urine Protein NEGATIVE Urine Glucose (UA) NEGATIVE Urine Ketones NEGATIVE Urine Occult Blood TRACE-LYSED Urine Nitrite NEGATIVE Urine Bilirubin NEGATIVE Urine Urobilinogen 0.2 (NORMAL) Ur Leukocyte Esterase NEGATIVE Urine RBC 0-5 Urine WBC 0-3 Ur Squamous Epith Cells FEW Squamous Amorphous Sediment Moderate Urine Bacteria Rare Urine Mucus Few Strands Ur Microscopic Review INDICATED Urine Culture Comments NOT INDICATED Ethyl Alcohol < 10.0 Rads (name of study) Chest x-ray: Relevant Findings:: Final report received and EMP independent interpretation of test Interpretation: IMPRESSION: No acute cardiopulmonary process. CT head without: Relevant Findings:: Final report received and EMP independent interpretation of test Interpretation: IMPRESSION: No acute intracranial pathology. PD Medical Decision Making ED course ED course: 85-year-old female with past medical history of GERD, depression, hypothyroidism, and hypercholesterolemia presents with fatigue, weakness, confusion, and intermittent headaches following recent COVID-19 infection treated with Paxlovid (completed on August 31). Since recovery, she has had persistent malaise and progressive weakness. Her son, who is her primary caregiver, also reports fluctuating alertness and several episodes of low blood pressure at home. Possible fall yesterday per family report, though details are unclear. On evaluation, the patient is alert but disoriented to time, repeatedly stating the year is 5. She is otherwise cooperative and follows commands appropriately. No focal neurological deficits are noted. [place]way Coma Scale is 14 (E4, V4, M6). Physical exam reveals a thin, chronically ill-appearing woman without distress. Vital signs notable for mild bradycardia (HR 50s) and hypertension. Laboratory results show hyponatremia (Na 128) Baseline Na 140, and mild hypochloremia (Cl 95); renal function and other electrolytes are normal. CBC and liver function tests are unremarkable. Troponin is negative, and there is no leukocytosis. CT head shows no acute intracranial abnormality, and chest X-ray is clear with no acute cardiopulmonary process. Urinalysis does not show infection. The likely etiology of her altered mental status and weakness is multifactorial, with hyponatremia being a significant contributing factor, possibly related to dehydration, recent illness, or medication effects. There is no evidence of acute stroke, infection, or intracranial pathology. Given her electrolyte abnormality, intermittent confusion, and frailty, the patient is not safe for discharge at this time. She will be placed in observation for further monitoring and management of hyponatremia, serial neurological assessments, and reassessment of mental status. Gentle IV fluid correction will be initiated with careful monitoring to avoid rapid sodium shifts Report given to hospitalist Aly Narayan greatly appreciate his collaboration and patient. Discharge Plan Discharge Patient Disposition: ED Place in Observation Condition: Stable Clinical Impression: Encephalopathy, Hyponatremia Prescriptions: No Action sertraline 50 mg tablet 50 mg PO QDAY Qty: 90 3RF benazepril 5 mg tablet See Rx Instructions .ROUTE .COMPLEX Qty: 90 1RF Dose Instruction: TAKE 1 TABLET BY MOUTH ONCE DAILY Rx Instructions: TAKE 1 TABLET BY MOUTH ONCE DAILY levothyroxine 88 mcg tablet 88 mcg PO QDAY Qty: 30 0RF Patient Comments: take 1 tablet by mouth once daily atorvastatin [Lipitor] 20 mg tablet 20 mg PO QDAY Qty: 30 0RF Paxlovid 300 mg (150 mg x 2)-100 mg tablets,dose pack See Rx Instructions PO .COMPLEX Qty: 30 0RF Rx Instructions: take TWO 150 mg tablets of nirmatrelvir with ONE 100 mg tablet of ritonavir twice daily for 5 days PO ondansetron HCl 8 mg tablet 8 mg PO Q12H 30 Days Qty: 60 0RF omeprazole 20 mg capsule,delayed release(DR/EC) 20 mg PO TID Print Language: Armenian Stand Alone Forms: PCP List
--- NOTE | 2025-09-02 16:57 | CT Report ---
PROCEDURE: CT Head WO INDICATIONS: ams TECHNIQUE: CT of the head was performed, without intravenous contrast. Reformats: Coronal and sagittal. For radiation dose reduction, the following was used: automated exposure control, adjustment of mA and/or kV according to patient size. COMPARISON: 05/01/2022 FINDINGS: Image quality: Diagnostic. CSF spaces: Basal cisterns are patent. No extra-axial fluid collections. Ventricles are normal in size and shape. Brain: No midline shift. No intracranial mass effect or hemorrhage. Matos- white matter interface is normal. Age appropriate volume loss and periventricular white matter hypoattenuation, likely chronic ischemic change. Skull and face: Calvarium and visualized facial bones are intact, without suspicious lesions. Sinuses: Visualized sinuses and mastoids are clear. IMPRESSION: No acute intracranial pathology. Reviewed by: Jerry Parham MD on 09/02/2025 4:54 PM PST Approved by: Jerry Parham MD on 09/02/2025 4:54 PM PST Station ID: [id number]
[2025-09-02] MEDS: ACETAMINOPHEN 325 MG TABLET PO STA (17:31)
[2025-09-02] MEDS: SODIUM CHLORIDE 0.9% 500 ML IV ONE (17:32)
[2025-09-02 18:19] LABS: AMORPHOUS SEDIMENT,UR Moderate /LPF; GLUCOSE, URINE (UA) NEGATIVE (NEGATIVE); KETONES,URINE (UA) NEGATIVE (NEGATIVE); OCCULT BLOOD,URINE TRACE-LYSED (NEGATIVE); SQUAMOUS EPITHELIAL CELL,UR FEW Squamous (<= Few)
[2025-09-02] MEDS: SODIUM CHLORIDE 0.9% 500 ML IV STA (20:02)
[2025-09-02 21:06] LABS: ETOH - ETHANOL < 10.0 mg/dL
--- NOTE | 2025-09-02 21:34 | HISTORY & PHYSICAL EXAMINATION ---
Chief Complaint Chief Complaint Chief Complaint: Confusion History of Present Illness Admitted From Admitted From:: Home with and son History Obtained From History obtained from: Interview with patient and son Exam Limitations: Patient is hard of hearing, ESL History of Present Illness HPI Comment/Other: 85-year-old female with history of CAD, atrial fibrillation, hypertension who presented with altered mental status. She recently was started on Paxlovid for COVID-19 infection. Her COVID symptoms appear to have abated, but her appetite has been poor over the past few days. Her son notes that starting yesterday, her activities have not been making sense. She has been intermittently confused, and sleeping a lot more than usual. Denies any new fevers, chills, chest pain, dyspnea, bowel/bladder abnormality. In the ER, CT head was performed which showed no acute infarct. UA was unremarkable, alcohol level negative. Chemistry noted a sodium of 128, which was 124 on repeat later in the day. She was given IV fluid bolus by the ER provider, and the hospitalist was contacted for observation for altered mental status and hyponatremia Meds/Allgy Home Medications Ambulatory Orders Medication Instructions Recorded Confirmed omeprazole 20 mg capsule,delayed 20 mg PO TID 09/18/24 06/20/25 release sertraline 50 mg tablet 50 mg PO QDAY #90 tabs 05/2806/20/25 benazepril 5 mg tablet See Rx Instructions .Route 0 07/15/25 .COMPLEX #90 tabs levothyroxine 88 mcg tablet 88 mcg PO QDAY #30 tabs atorvastatin 20 mg tablet (Lipitor) 20 mg PO QDAY #30 tabs 07/25/25 nirmatrelvir 300 mg (150 mg See Rx Instructions PO .CO MPLEX 08/22/25 x2)-ritonavir 100 mg tablet,dose #30 ea pack (Paxlovid) ondansetron HCl 8 mg tablet 8 mg PO Q12H 30 days #60 t abs 08/26/25 Allergies Allergies Allergy/AdvReac Type Severity Reaction Status Date / Time procaine (From Novocain) Allergy Unknown Verified 09/02/25 12:47 PFSH Active Problems All Active Problems (Updated 09/02/25 @ 20:44 by Aly Narayan DNP) Hyponatremia (Acute) Altered mental status (Acute) Nausea (Acute) CAD (coronary artery disease) (Acute) Arcus senilis of both corneas (Acute) Atrial fibrillation (Acute) Drusen (degenerative) of macula, bilateral (Acute) Vitreous degeneration, bilateral (Acute) Unspecified peripheral retinal degeneration (Acute) Osteoporosis (Acute) Combined hyperlipidemia (Acute) HTN (hypertension), benign (Acute) Arthritis (Acute) Hypothyroidism (Acute) Medical History Medical History (Updated 09/02/25 @ 20:44 by Aly Narayan DNP) Alteration in vision Abdominal pain Femur fracture Multiple medical problems Excessive ear wax TIA (transient ischemic attack) Chronic GERD Anxiety Hypertension Surgical History Surgical History Hx of hernia repair Family History Family History Mother Diabetes Maternal grandmother Diabetes Social History Social History (Updated 06/20/25 @ 15:51 by Ramesh Boyd MD) Smoking Status: Smoker with current status unk Do you feel safe in your home environment?: Yes History of physical, verbal, emotional, or financial abuse?: No Are you sexually active?: No Review of Systems Status of ROS: 10 or more systems reviewed and unremarkable except as noted in history and below Exam Exam Vital Signs: Vital Signs x48h Pulse Resp BP Pulse Ox 09/02/25 20:44 62 18 122/61 99 09/02/25 18:16 54 L 20 165/76 H 100 09/02/25 17:16 58 L 151/107 H 97 09/02/25 15:54 51 L 16 142/87 H 97 Constitutional Very pleasant elderly female in no acute distress [facility] normocephalic and head/scalp atraumatic Eyes PERRL and EOMs intact bilaterally Chest inspection of chest normal Respiratory breath sounds equal bilaterally and normal respiratory effort Cardiovascular normal heart rate noted and regular rhythm noted Gastrointestinal abdomen normal to inspection Extremities normal to inspection Neurology GCS 15 Psychiatry oriented x3 Intermittently confused Skin skin color normal Conclusion/Plan Problem List (1) Altered mental status: Plan: Considering multiple differentials for cause of altered mental status Son reports that current condition is far from her baseline, that she is normally sharp Recent COVID infection, this could be directly or indirectly affecting this Son reports poor oral intake No lateralizing deficits, no abnormality noted on CT UA clear Son reports giving her a fraction of a trazodone tablet last night, states she normally does not take this I suspect that her delirium is due to dehydration and hyponatremia Manage hyponatremia as below I have also ordered supplemental thiamine and vitamins to optimize her micronutrient intake (2) Hyponatremia: Plan: Initial sodium 128, repeat 124 IVF bolus given by ED I am ordering NS at 100 Check sodium every 4 hours until greater than 130 (3) Atrial fibrillation: Plan: Does not appear to be on any rate controlling medications or anticoagulant at home Await pharmacy review Rate controlled right now, son reports that she has been bradycardic in the past Telemetry (4) HTN (hypertension), benign: Plan: BP 122/61 this evening, will wait until pharmacy review before starting back antihypertensives Preliminary med list shows benazepril Plan Place in observation DNR/DNI Her son is her surrogate decision maker/DPOA Lab Results 09/02/25 13:13 09/02/25 20:44 Core Measures Anticipated LOS I expect patient to be DC'd or transferred within 96 hours.: Yes DVT/VTE - Prophylaxis VTE/DVT Prophylaxis med ordered at admit?: Yes
[2025-09-02 21:45] LABS: AMPHETAMINE SCREEN,URINE NEGATIVE (NEGATIVE); BARBITURATE SCREEN,UR NEGATIVE (NEGATIVE); BENZODIAZEPINES SCREEN, URINE NEGATIVE (NEGATIVE); BUPRENORPHINE SCREEN, URINE NEGATIVE (NEGATIVE); COCAINE SCREEN URINE NEGATIVE (NEGATIVE); METHADONE SCREEN, URINE NEGATIVE (NEGATIVE); METHAMPHETAMINES SCREEN, URINE NEGATIVE (NEGATIVE); OPIATE SCREEN, URINE NEGATIVE (NEGATIVE); THC CANNABINOID SCREEN, URINE NEGATIVE (NEGATIVE)
[2025-09-02] MEDS: THIAMINE 100 MG/1 ML 2 ML MDV IVP STA (22:29)
[2025-09-02] MEDS ORDERED: ONDANSETRON 4 MG/2 ML VIAL IVP PRN (23:50)
[2025-09-02] MEDS ORDERED: ACETAMINOPHEN 325 MG TABLET PO PRN (23:50)
[2025-09-02] MEDS ORDERED: SODIUM CHLORIDE FLUSH 0.9% 10 ML SYRINGE IVP PRN (23:50)
[2025-09-02] MEDS ORDERED: ONDANSETRON ODT 4 MG TABLET TL PRN (23:50)
[2025-09-03] MEDS: SODIUM CHLORIDE 0.9% 1,000 ML IV SCH (00:08)
[2025-09-03] MEDS: SODIUM CHLORIDE FLUSH 0.9% 10 ML SYRINGE IVP SCH (04:37)
[2025-09-03 05:06] LABS: HCT - HEMATOCRIT 36.5 % (37.0-47.0); HGB - HEMOGLOBIN 12.3 g/dL (12.0-16.0); MEAN PLATELET VOLUME 10.1 fL (7.9-10.8); NRBC ABSOLUTE COUNT (AUTO) 0.00 x10^3/uL; NUCLEATED RED BLOOD CELLS AUTO 0.0 /100WBC; PLT - PLATELET COUNT 368 10^3/uL (130-450); RED CELL DISTRIBUTION WIDTH 14.3 % (12.0-15.0)
[2025-09-03 05:18] LABS: BUN - BLOOD UREA NITROGEN 9.0 mg/dL (6-20); CARBON DIOXIDE - CO2 23.0 mmol/L (21-32); CREATININE 0.8 mg/dL (0.6-1.3); GFR - MDRD 68.0 (>89)
--- NOTE | 2025-09-03 05:41 | PROVIDER PROGRESS NOTE ---
Chief Clerk Shelter Note Chief Clerk Shelter Note Chief Clerk Shelter Note: per nurse: Pt is 85F Full code admitted to observation for hyponatremia. This morning, sodium is 134. Yesterday, her sodium was 128 at 13:00, then 124 at 20:00. For fluids, she currently has NS@100. Any changes to her fluids you would like? - will stop NS. will bolus D5W 500cc. -recheck sodium level. -continue to monitor.
[2025-09-03] MEDS: DEXTROSE 5% 500 ML IV SCH (05:44)
[2025-09-03] MEDS: DEXTROSE 5% 1,000 ML IV SCH (07:39)
[2025-09-03] MEDS: PRENATAL VITAMIN TABLET PO SCH (08:57)
[2025-09-03] MEDS: THIAMINE 100 MG TABLET PO SCH (08:57)
[2025-09-03] MEDS: ENOXAPARIN 40 MG/0.4 ML SYRINGE SUBQ SCH (08:57)
[2025-09-03 12:31] LABS: BUN - BLOOD UREA NITROGEN 10.0 mg/dL (6-20); CARBON DIOXIDE - CO2 24.0 mmol/L (21-32); CREATININE 0.7 mg/dL (0.6-1.3); GFR - MDRD 80.0 (>89)
--- NOTE | 2025-09-03 12:36 | Discharge Summary ---
Discharge Summary Admit Date: 09/02/25 Discharge Date: 09/03/25 Discharging Provider: Lyssa Doss PA-C Primary Care Provider: CARLOTTA Butler Code Status: Do Not Attempt Resuscitation DIAGNOSES Discharge Diagnoses with Status of Each Condition: Altered mental status, resolved. Hyponatremia, resolved Atrial fibrillation, chronic and controlled Not currently on any medications. Hypertension, chronic and controlled CODE STATUS: DNR/DNI HPI History of Present Illness: 85-year-old female with history of CAD, atrial fibrillation, hypertension who presented with altered mental status. She recently was started on Paxlovid for COVID-19 infection. Her COVID symptoms appear to have abated, but her appetite has been poor over the past few days. Her son notes that starting yesterday, her activities have not been making sense. She has been intermittently confused, and sleeping a lot more than usual. Denies any new fevers, chills, chest pain, dyspnea, bowel/bladder abnormality. In the ER, CT head was performed which showed no acute infarct. UA was unremarkable, alcohol level negative. Chemistry noted a sodium of 128, which was 124 on repeat later in the day. She was given IV fluid bolus by the ER provider, and the hospitalist was contacted for observation for altered mental status and hyponatremia HOSPITAL COURSE Hospital Course: 85-year-old female with recent COVID infection who had completed a course of Paxlovid recently presented to the emergency department with confusion and altered mental status and was subsequently found to have hyponatremia. Her treatment has consisted of a regular diet, 2 L of NS given in the emergency department.. Her sodium corrected quite quickly from 124-134 she was then started on D5W 500 cc bolus, followed by 250 cc bolus. Prior to discharge her sodium level was repeated and found to be 132. She was alert oriented appeared well. Sitting up in the bedside chair eating mashed potatoes and sauerkraut that her daughter brought her from home. Patient was educated regarding her recent COVID infection, she should get COVID vaccination about 3 months after her infection. She received a flu shot 1 day before coming down with her COVID symptoms. ALLERGIES Allergies Allergy/AdvReac Type Severity Reaction Status Date / Time procaine (From Novocain) Allergy Unknown Verified 09/02/25 12:47 MEDICATIONS Ambulatory Orders Medication Instructions Recorded Confirmed benazepril 5 mg tablet 5 mg PO DAILY 09/03/2509/03 levothyroxine 88 mcg tablet 88 mcg PO DAILY 09/03/25 1 11/03/24 sertraline 50 mg tablet 50 mg PO DAILY 09/03/2508/23 PHYSICAL EXAM AT DISCHARGE Vital Signs: Vital Signs x48h Temp Pulse Resp BP Pulse Ox 09/03/25 16:50 36.5 C 53 L 18 139/75 H 99 09/03/25 15:40 36.5 C 58 L 18 131/76 H 99 09/03/25 14:23 36.5 C 58 L 16 110/67 94 LABS 09/03/25 04:45 09/03/25 12:14 DIAGNOSTIC IMAGING Diagnostic Imaging Results Comments: Chest x-ray: No acute cardiopulmonary process Head CT: No acute intracranial pathology FOLLOW UP Follow Up: PCP, [facility] within 1 week for repeat BMP. TIME SPENT Time Spent in Discharge (Minutes): 45 Discharge Plan Discharge Patient Disposition: Home, Self Care Condition: Stable Prescriptions: Continued levothyroxine 88 mcg tablet 88 mcg PO DAILY Patient Comments: take 1 tablet by mouth once daily sertraline 50 mg tablet 50 mg PO DAILY benazepril 5 mg tablet 5 mg PO DAILY Diet: Regular Interventions: Discharge Last Done: 09/03/25 17:17 Discharge Checklist - Nursing Last Done: 09/03/25 17:18 Health Concerns: What is Hyponatremia? Hyponatremia means your blood sodium level is lower than normal. Sodium helps your body balance fluids and supports nerve and muscle function. Older adults are at higher risk, and even mild hyponatremia can increase the risk of falls, confusion, and bone problems. What to Watch For: * Call your doctor or go to the emergency room if you notice: * Confusion, trouble thinking, or memory problems * Trouble walking, dizziness, or falls * Severe headache, nausea, vomiting * Muscle cramps or weakness * Seizures or fainting These symptoms may mean your sodium is too low or changing too quickly and need urgent attention. How to Manage at Home: * Follow fluid restrictions if advised: * Only drink the amount of fluid your doctor recommends (often less than 11.5 liters per day, including water, coffee, tea, soup, and other drinks). * Eat a balanced diet: * Include enough salt and protein as recommended. Do not start a low-salt diet unless told by your doctor. * Take medications as prescribed: * Some medicines can cause or worsen hyponatremia. Do not stop or change any medication without talking to your doctor. The Sertraline that you are on can be associated with some hyponatremia. Make sure to talk to your primary care provider about this at your next visit. * Avoid alcohol and excessive exercise: * These can worsen hyponatremia.[4] Follow-Up and Monitoring: * Get regular blood tests: * Your doctor will check your sodium level and adjust your treatment as needed. * Report any new symptoms: * Even mild changes in balance, memory, or mood should be discussed. Preventing Complications: * Do not try to correct sodium quickly: * Rapid changes can cause serious brain problems. Always follow your doctors instructions. * Watch for falls: * Hyponatremia increases the risk of falls and fractures. Use handrails, wear sturdy shoes, and keep your home well-lit. When to Seek Help: * If you feel much worse, have trouble staying awake, or develop any of the symptoms listed above, seek medical care immediately. Questions? * Contact your healthcare provider if you have questions about your fluid intake, diet, medications, or symptoms. Summary: Hyponatremia is common in older adults and can be serious. Careful management, regular monitoring, and attention to symptoms are andersen to staying safe and healthy. Print Language: Wallisian Patient Instructions: Hyponatremia Dc Follow-up Care: [facility] FNP [Primary Care Provider, Family Practice] Vitals documented within 30 minutes of discharge?: Yes
[2025-09-03 14:24] VITALS: TEMP 97.7
[2025-09-03 15:52] VITALS: O2SAT 99
--- NOTE | 2025-09-03 16:48 | PHARMACY PROGRESS NOTE ---
Best Possible Medication History Admit Date and Time: 09/02/252042 Home Medications Medication Instructions Recorded Confirmed Type benazepril 5 mg tablet 5 mg PO DAILY 09/03/2509/03 History levothyroxine 88 mcg tablet 88 mcg PO DAILY 09/03/25 1 11/03/24 History sertraline 50 mg tablet 50 mg PO DAILY 09/03/2508/23 History Processed by: Pharmacy Medications reviewed in ED?: Yes Medication History completed: Yes Patient Interview: Completed Secondary Source(s): Insurance records [facility] Statement: PATIENT WAS ONLY ABLE TO RECALL THAT SHE TAKES 3 MEDICATIONS AT HOME. THIS LIST IS WHAT SHE HAS RECENTLY PICKED UP FROM HER PHARMACY AND SHE DEMONSTRATED THAT THESE ARE THE 3 SHE TAKES BUT WAS RATHER UNCERTAIN ABOUT IT OVERALL As the person ultimately responsible for medication therapy, providers are able to order a medication from an existing home medication list in [facility] via the "Reconcile Routine" prior to Confirmation of that medication by office support. Such practice is discouraged except when the physician, in their clinical judgment, deems that a medical need exists for a medication without regard to previous use.
[2025-09-03 17:05] VITALS: BP 139/75
== END 2025-09-03 16:55 | disposition home or self-care (01) ==
LOC: ICU 12:24 → ED 12:24 → ICU 23:46 → MS2 09-03 10:29
PROVIDERS: ADMIT Nurse Practitioner Acute Care; ATTEND Nurse Practitioner Acute Care
DX: E87.8 Other disorders of electrolyte and fluid balance, not elsewhere classified; I48.20 Chronic atrial fibrillation, unspecified; I10 Essential (primary) hypertension; K21.9 Gastro-esophageal reflux disease without esophagitis; E78.00 Pure hypercholesterolemia, unspecified; E03.9 Hypothyroidism, unspecified; E87.1 Hypo-osmolality and hyponatremia; Z79.899 Other long term (current) drug therapy; I25.10 Atherosclerotic heart disease of native coronary artery without angina pectoris; Z00.00 Encounter for general adult medical examination without abnormal findings; F17.200 Nicotine dependence, unspecified, uncomplicated; Z66 Do not resuscitate; Z86.16 Personal history of COVID-19; Z79.890 Hormone replacement therapy; F32.A Depression, unspecified; R51.9 Headache, unspecified; R07.9 Chest pain, unspecified